=== PATIENT | male | born 1970 | race Caucasian/White ===

== ENCOUNTER 2019-08-22 17:29 | Emergency (ER) | payer OTHER, SELFPAY ==
[~2019-08-22] VITALS: Ht 172.7 cm; Wt 93.0 kg
[2019-08-22 17:32] VITALS: BP 142/78
--- NOTE | 2019-08-22 17:51 | NUR ---
C/O FEVER,COUGH, SORE THROAT,LOPEZ,BODY ACHE X YESTERDAY. HIS SON HAS COVID +. TEMP 98.1, P 91,R18,O2SAT 98%, BP 142/78 AT THIS TIME. MED HX: OBDULIA Addendum: 08/22/19 at 1803 by [email or web address] COVID SWAB DONE.
[2019-08-22 18:00] VITALS: BP 142/78
--- NOTE | 2019-08-22 18:00 | NUR ---
Patient discharged with v/s stable. Written and verbal after care instructions given and explained. Patient alert, oriented and verbalized understanding of instructions. Ambulatory with steady gait. All questions addressed prior to discharge. ID band removed. Patient advised to follow up with PMD. Rx of PROMETHAZINE &IBUPROFEN given. Patient educated on indication of medication including possible reaction and side effects. Opportunity to ask questions provided and answered.
== END 2019-08-22 18:00 | disposition home or self-care (01) ==
LOC: EEVIPCON 17:29 → MED 17:29
DX: R05 Cough (principal); M79.10 Myalgia, unspecified site; R51 Headache
CPT/HCPCS: 99283; U0003-CS